=== PATIENT | male | born 1970 | race Caucasian/White ===

== ENCOUNTER → 2020-04-20 15:02 | Outpatient (BNVA) | payer OTHER, SELFPAY | PROVIDERS: Visit Provider Physician Assistant Medical | DX: S50.01XA Contusion of right elbow, initial encounter (principal); W18.30XA Fall on same level, unspecified, initial encounter | CPT/HCPCS: 99202 ==

== ENCOUNTER 2020-09-11 20:11 | Inpatient (IN) | payer OTHER, SELFPAY ==
--- NOTE | ~2020-09-11 | US_ITS ---
EXAMINATION: US ABDOMEN COMPLETE CLINICAL INFORMATION: Right upper quadrant pain. Hepatitis.. COMPARISON: None TECHNIQUE: Real-time imaging of the abdominal viscera. FINDINGS: PANCREAS: Normal. ABDOMINAL AORTA: The proximal, mid, and distal segments are normal in caliber. INFERIOR VENA CAVA: Visualized portions are normal. LIVER: Liver echotexture is increased. The liver is normal in size. The liver contour is normal. No focal hepatic lesion. There is no intrahepatic biliary duct dilatation seen. GALLBLADDER: Normal. The gallbladder is physiologically distended without evidence of stones, sludge, polyps, wall thickening or pericholecystic fluid. COMMON BILE DUCT: Normal in caliber measuring 0.5 cm in diameter. RIGHT KIDNEY: There is a 1 cm cyst in the mid to lower pole. No hydronephrosis. No renal calculi or focal parenchymal lesions. The kidney measures 11 cm in maximum dimension. LEFT KIDNEY: Normal. No hydronephrosis. No renal calculi or focal parenchymal lesions. The kidney measures 10 cm in maximum dimension. SPLEEN: Normal. The spleen measures 8 cm in maximum dimension. FREE FLUID: None. US/US abdomen complete IMPRESSION: Echogenic liver probably representing fatty infiltration. Small right renal cyst.
[2020-09-11 20:25] VITALS: BP 147/84; PULSE 118; RESP 18; TEMP 36.9; O2SAT 95; BMI 28.8
--- NOTE | 2020-09-11 20:44 | MHC.RECOVSUP ---
? Reason for consult Recovery support o Current location: ED6 o Identified substance use concern: Alcohol - Withdrawal - Seeking ATS (detox) - Support ? Intervention: o ATS bed search started8:30PM/completed8:45PM o Community resources provided o Harm reduction discussion ? Plan: o <del>Referral</del> <del>to</del> <del>[facility]</del> <del>o</del> <del>Bed</del> <del>search</del> <del>in</del> <del>progress</del> <del>to</del> <del>o</del> <del>Follow</del> <del>up</del> <del>tomorrow</del> <del>o</del> <del>Patient</del> <del>awaiting</del> <del>crisis</del> <del>evaluation</del> o Patient to follow up with [facility] after discharge ? 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 Patient stated that he was in [facility] detox and would like to go go back.. Called [facility] and they advised me to call in the morning.. I informed the care team about plan of action.. Patient is currently going through withdrawal and is being looked after...
--- NOTE | 2020-09-11 20:59 | ED_ITS ---
HPI - Alcohol General Chief Complaint: ETOH/Substance Use Stated Complaint: detox Time Seen by Provider: 09/11/20 22:16 Source: patient and family Mode of arrival: ambulatory Limitations: no limitations History of Present Illness HPI narrative: 49-year-old male with past medical history of hypertension presents for EtOH withdrawals and asking for detox. Patient states to drink hard liquor, usually vodka, and 6-10 beers daily. States that he has gone to [facility] in the past approximately 3 years ago. He states that he has been drinking every day, usually starting at 9:00 a.m. to the time he goes to bed. He feels like his life is out of control, and feels that if he does not get help that he and his family will suffer greatly. Patient reports tremors, palpitations, and anxiety. Patient does not report any chest pain or pressure, abdominal pain, abdominal distention, melena, hematochezia, nausea, vomiting, diarrhea, constipation, edema, suicidal ideation, homicidal ideation, auditory or visual hallucinations. MD complaint: alcohol intoxication, alcohol withdrawal, alcohol dependence and desires rehab Last drink: Hours (ago) (Several hours ago) Chronic alcohol use: Yes Previous visits for alcohol intoxication: No Recent trauma: No Associated symptoms: diaphoresis, tremors and depression Treatments prior to arrival: none Related Data Home Medications Medication Instructions Recorded Confirmed lisinopril 10 mg PO DAILY 09/11/20 09/11/20 Allergies Allergy/AdvReac Type Severity Reaction Status Date / Time No Known Allergies Allergy Verified 09/11/20 20:57 Review of Systems Review of Systems: Constitutional: Positive tremors, No Fever, No Chills ENT/Mouth: No sore throat, No Rhinorrhea Eyes: No Eye Pain, No Swelling, No Redness Cardiovascular: Positive palpitations, No Chest Pain, No SOB Respiratory: No Cough, No Sputum Gastrointestinal: No Nausea, No Vomiting, No Diarrhea, No abdominal Pain Genitourinary: No Dysuria, No Hematuria Musculoskeletal: No joint pain, No Myalgias, No Joint Swelling Skin: No Skin Lesions, No rash Neuro: No Weakness, No Numbness, No Loss of Consciousness, No Dizziness, No Headache Psych: Positive alcohol abuse, No Anxiety, No Depression, No SI/HI/AH/VH Heme/Lymph: No Bruising, No Bleeding,No Lymphadenopathy Endocrine: No Polyuria, No Polydipsia Yes all other systems are reviewed and are negative [facility] Past Medical History Attestation statement: The following information was validated with the patient. Source: old records reviewed Medical History HTN (hypertension) Social History Social History Advance Directives: No Advance Directives Information Provided: Yes Physical Exam Vital Signs: Vital Signs: Last Vital Signs Temp 98.2 F 09/11/20 23:15 Pulse 92 09/11/20 23:15 Resp 18 09/11/20 23:15 BP 134/79 09/11/20 23:15 Pulse Ox 95 09/11/20 23:15 Body Mass Index 28.8 Appearance: Alert. Oriented X3. Moderate distress. Head: Normal external exam. Normocephalic. Atraumatic. No Garcia signs noted. No raccoon eyes noted Eyes: PERRLA. EOMI. Conjunctiva and sclera normal. Eyelids normal. Sclerae nonicteric. ENT: TM's Normal. Pharynx normal. Uvula midline. Moist mucous membranes. Neck: Normal inspection. Neck supple. No adenopathy. Thyroid Normal. No meningeal signs. No neck mass noted. CVS: Normal heart rate and rhythm. Heart sound normal. No murmurs noted. Pulses equal to all extremities. Respiratory: No respiratory distress. Painless inspiration. Lung sounds clear to auscultation all lobes. Chest nontender. No accessory muscle usage noted or decreased air movement noted. Abdomen: Soft and nontender. Bowel sounds normal in all 4 quadrants. No distention noted. No organomegaly noted. No visible injury noted. Back: No CVA tenderness. Full range of motion noted. Skin: Skin warm and dry. Normal skin color. Normal skin turgor. No rashes/lesions/lacerations noted. Extremities: No lower extremity edema. Extremities exhibit normal range of motion. Extremities nontender. Neuro: cranial nerves 2-12 intact, no focal neural deficits, strength 5/5 to all extremities, No motor deficit. No sensory deficit. Reflexes normal. Course Course Course Narrative: 49-year-old male presents with ETOH withdrawal, patient is tachycardic, hypertensive, and tremorous. Will start phenobarbital protocol. He does not report any auditory or visual hallucinations, does not report black outs for seizures. Has been drinking 1-2 points + beer on a daily basis for the past several months. Discussion with hospitalist regarding plan of care, plan is to admit for EtOH w ithdrawal. Consultations Consultation #1: sonia MDM - Alcohol Differential Diagnosis Differential diagnosis: Likely alcohol dependence, alcohol withdrawal delirium, alcohol intoxication, alcohol ketoacidosis and alcohol withdrawal syndrome Medical Records Attestation: I reviewed the patient's medical records. Lab Data Attestation: I reviewed the patient's lab results. Result diagrams: 09/11/20 21:11 09/11/20 21:11 Labs: Lab Results 09/11/20 09/11/20 09/11/20 Range/Units 21:11 21:11 21:11 WBC 6.9 (4.8-10.8) X10*3/uL RBC 4.35 L (4.60-5.80) X10*6/uL Hgb 14.5 (14.0-18.0) g/dl Hct 41.3 L (42-52) % MCV 94.9 (80-98) fL MCH 33.3 H (27.0-33.0) pg MCHC 35.1 (31.0-36.0) g/dl RDW 13.0 (11.0-16.0) % Plt Count 228 (160-400) X10*3/uL MPV 9.4 (9.4-12.4) fL Immature Gran % (Auto) 0.1 (0.0-0.4) % Neut % (Auto) 74.0 H (45-73) % Lymph % (Auto) 16.7 L (20-40) % [place] % (Auto) 8.3 (2-11) % Eos % (Auto) 0.0 (0-4) % Baso % (Auto) 0.9 (0-2) % Lymph # (Auto) 1.2 (1.2-4.9) X10*3/uL [place] # (Auto) 0.6 (0.1-1.2) X10*3/uL Eos # (Auto) 0.0 (0.0-0.4) X10*3/uL Baso # (Auto) 0.1 (0.0-0.2) X10*3/uL Abs Immat Gran (auto) 0.01 (0.00-0.03) X10*3/uL Absolute Neuts (auto) 5.1 (2.0-8.3) X10*3/uL Absolute Nucleated RBC 0.000 (0.0-0.012) X10*3/uL Nucleated RBC % (auto) 0.0 (0.0-0.2) /100WBC Sodium 135 (135-145) mmol/L Potassium 4.7 (3.3-5.1) mmol/L Chloride 100 (96-108) mmol/L Carbon Dioxide 17 L (22-29) mmol/L Anion Gap 23 H (12-20) BUN 7 L (9-16) mg/dL Creatinine 1.01 (0.5-1.4) mg/dL Estim Creat Clear Calc 93.4 Estimated GFR > 60 Random Glucose 108 (60-115) mg/dL Calcium 8.8 (8.4-10.2) mg/dL Phosphorus 3.8 (2.7-4.5) mg/dL Magnesium 2.0 (1.6-2.6) mg/dL Total Bilirubin 0.2 (0.0-1.0) mg/dL Direct Bilirubin 0.2 (0.0-0.5) mg/dL AST 183 H (5-37) U/L ALT 132 H (0-40) U/L Alkaline Phosphatase 53 (39-117) U/L Total Protein 7.9 (6.5-8.0) g/dL Albumin 4.7 (3.5-5.0) g/dL Lipase 35 (8-78) U/L Urine Opiates Screen (Not Detect) Ur Barbiturates Screen (Not Detect) Ur Phencyclidine Scrn (Not Detect) Ur Amphetamines Screen (Not Detect) U Benzodiazepines Scrn (Not Detect) Urine Cocaine Screen (Not Detect) U Marijuana (THC) Screen (Not Detect) Ethyl Alcohol 199 mg/dL COVID-19 (MATT) (Negative) COVID-19 Clin Com 09/11/20 09/11/20 Range/Units 22:25 22:34 WBC (4.8-10.8) X10*3/uL RBC (4.60-5.80) X10*6/uL Hgb (14.0-18.0) g/dl Hct (42-52) % MCV (80-98) fL MCH (27.0-33.0) pg MCHC (31.0-36.0) g/dl RDW (11.0-16.0) % Plt Count (160-400) X10*3/uL MPV (9.4-12.4) fL Immature Gran % (Auto) (0.0-0.4) % Neut % (Auto) (45-73) % Lymph % (Auto) (20-40) % [place] % (Auto) (2-11) % Eos % (Auto) (0-4) % Baso % (Auto) (0-2) % Lymph # (Auto) (1.2-4.9) X10*3/uL [place] # (Auto) (0.1-1.2) X10*3/uL Eos # (Auto) (0.0-0.4) X10*3/uL Baso # (Auto) (0.0-0.2) X10*3/uL Abs Immat Gran (auto) (0.00-0.03) X10*3/uL Absolute Neuts (auto) (2.0-8.3) X10*3/uL Absolute Nucleated RBC (0.0-0.012) X10*3/uL Nucleated RBC % (auto) (0.0-0.2) /100WBC Sodium (135-145) mmol/L Potassium (3.3-5.1) mmol/L Chloride (96-108) mmol/L Carbon Dioxide (22-29) mmol/L Anion Gap (12-20) BUN (9-16) mg/dL Creatinine (0.5-1.4) mg/dL Estim Creat Clear Calc Estimated GFR Random Glucose (60-115) mg/dL Calcium (8.4-10.2) mg/dL Phosphorus (2.7-4.5) mg/dL Magnesium (1.6-2.6) mg/dL Total Bilirubin (0.0-1.0) mg/dL Direct Bilirubin (0.0-0.5) mg/dL AST (5-37) U/L ALT (0-40) U/L Alkaline Phosphatase (39-117) U/L Total Protein (6.5-8.0) g/dL Albumin (3.5-5.0) g/dL Lipase (8-78) U/L Urine Opiates Screen Not Detected (Not Detect) Ur Barbiturates Screen Not Detected (Not Detect) Ur Phencyclidine Scrn Not Detected (Not Detect) Ur Amphetamines Screen Not Detected (Not Detect) U Benzodiazepines Scrn Not Detected (Not Detect) Urine Cocaine Screen Not Detected (Not Detect) U Marijuana (THC) Screen Not Detected (Not Detect) Ethyl Alcohol mg/dL COVID-19 (MATT) Negative (Negative) COVID-19 Clin Com See Note Critical Care Time Critical Care Time Critical Care Time: Yes Total Critical Care Time: 45 Attestation: I have personally provided critical care time exclusive of time spent on separately billable procedures. Time includes review of laboratory data, radiology results, discussion with consultants, and monitoring for potential decompensation. Interventions were performed as documented. Discharge Plan Discharge Clinical Impression: Alcohol withdrawal syndrome Qualifiers: Complication of substance-induced condition: with unspecified complication Qualified Code(s): F10.239 - Alcohol dependence with withdrawal, unspecified Patient Disposition: Admitted As Inpatient
[2020-09-11 21:18] LABS: MANUAL DIFF FLAG NO
[2020-09-11 21:19] LABS: Basophils Absolute Auto 0.1 X10*3/uL (0.0-0.2); Basophils Percent Auto 0.9 % (0-2); Hematocrit 41.3 % (42-52); Hemoglobin 14.5 g/dl (14.0-18.0); Imm Gran Abs Auto 0.01 X10*3/uL (0.00-0.03); Imm Gran Pct Auto 0.1 % (0.0-0.4); Lymphocytes Absolute Auto 1.2 X10*3/uL (1.2-4.9); Lymphocytes Percent Auto 16.7 % (20-40); Mean Corpuscular HGB Conc 35.1 g/dl (31.0-36.0); Mean Corpuscular Hemoglobin 33.3 pg (27.0-33.0); Mean Corpuscular Volume 94.9 fL (80-98); Mean Platelet Volume 9.4 fL (9.4-12.4); Monocytes Absolute Auto 0.6 X10*3/uL (0.1-1.2); Monocytes Percent Auto 8.3 % (2-11); Neutrophils Absolute Auto 5.1 X10*3/uL (2.0-8.3); Platelet Count 228 X10*3/uL (160-400); Red Blood Count 4.35 X10*6/uL (4.60-5.80); White Blood Count 6.9 X10*3/uL (4.8-10.8)
[2020-09-11 21:38] LABS: Ethanol 199 mg/dL
[2020-09-11] MEDS: Thiamine HCL 200 MG/2 ML VIAL IVPUSH (21:39)
[2020-09-11] MEDS: PHENobarbitaL sodium 130 MG/ML VIAL 328 MG IM (21:39)
[2020-09-11] MEDS: 0.9 % Sodium Chloride 1,000 ML 999 ML IVCONT (21:40)
[2020-09-11 21:50] VITALS: BP 138/74; PULSE 101; RESP 16; O2SAT 98
[2020-09-11 22:43] LABS: Alanine Aminotransferase 132 U/L (0-40); Albumin Level 4.7 g/dL (3.5-5.0); Alkaline Phosphatase 53 U/L (39-117); Anion Gap 23 (12-20); Aspartate Amino Transferase 183 U/L (5-37); Bilirubin Direct 0.2 mg/dL (0.0-0.5); Bilirubin Total 0.2 mg/dL (0.0-1.0); Blood Urea Nitrogen 7 mg/dL (9-16); Calcium 8.8 mg/dL (8.4-10.2); Carbon Dioxide 17 mmol/L (22-29); Chloride 100 mmol/L (96-108); Creatinine Clr Calc Pharmacy 93.4; Estimated Glomerular Filt Rate > 60; Glucose Random 108 mg/dL (60-115); Lipase 35 U/L (8-78); Phosphorus 3.8 mg/dL (2.7-4.5); Potassium 4.7 mmol/L (3.3-5.1); Sodium 135 mmol/L (135-145); Total Protein 7.9 g/dL (6.5-8.0)
[2020-09-11 22:54] LABS: COVID-19 Test Negative (Negative)
[2020-09-11 23:03] LABS: Amphetamine Screen Urine Not Detected (Not Detect); Barbiturates, Urine Not Detected (Not Detect); Benzodiazepines Screen Urine Not Detected (Not Detect); Cannabinoid Screen Urine Not Detected (Not Detect); Cocaine Screen Urine Not Detected (Not Detect); Opiate Screen Urine Not Detected (Not Detect); Phencyclidine Screen Urine Not Detected (Not Detect)
[2020-09-11 23:15] VITALS: BP 134/79; PULSE 92; RESP 18; TEMP 36.8; O2SAT 95
[2020-09-12] VITALS (7 sets, daily range): BP systolic 136–162; BP diastolic 78–90; PULSE 66–83; RESP 18–20; TEMP 36–36.6; O2SAT 95–98
--- NOTE | 2020-09-12 | PM.IMHP ---
History of Present Illness Date of Service: 09/12/20 Chief Complaint: Alcohol detox 49-year-old male with a past medical history of hypertension, alcohol abuse presented to the hospital with a chief complaint requesting for alcohol detoxification. Patient reported that he has been drinking alcohol every day; drinks about 2 pt of liquor and 6-12 beers per day. Patient mentions last drink was this afternoon; subsequently started full shaky tremulous and tachycardic; not feeling well; denies any abdominal discomfort nausea vomiting or chest pain. Denies any palpitations Denies any numbness tingling. Review of all other systems is negative except mentioned above ER course: Per ER team patient is mentating well; noted to be tachycardic and hypertensive; tremulous; patient was started on phenobarb protocol for alcohol withdrawal. Admitted to the hospital for further management. [facility] Medical History (Updated 09/14/20 @ 13:56 by Luna Liu MD) HTN (hypertension) Transaminasemia Social History Household Members: Spouse Housing: House Do you presently have visiting nurse or other home services: No Patient Tobacco Use Status: Never used Tobacco service: Yes Current occupational status: employed Meds Allergies Allergy/AdvReac Type Severity Reaction Status Date / Time No Known Allergies Allergy Verified 09/11/20 20:57 Active Medications: Current Medications Generic Name Dose Route Start Last Admin Trade Name Freq PRN Reason Stop Dose Admin Famotidine 20 mg 09/12/20 09:00 Famotidine/Pf 20 Mg/2 Ml Vial IVPUSH BID JEREMY Folic Acid 1 mg 09/12/20 09:00 Folic Acid 1 Mg Tablet PO 09/15/20 08:59 DAILY JEREMY Hydroxyzine HCl 25 mg 09/11/20 23:55 Hydroxyzine Hcl 25 Mg Tablet PO Q6H PRN Anxiety Dextrose/Sodium Chloride 1,000 mls @ 100 mls/hr 09/11/20 23:45 D51/2ns IVCONT .Q10H JEREMY Magnesium Hydroxide 30 ml 09/11/20 23:55 Milk Of Magnesia 30 Ml Oral.Susp PO DAILY PRN Constipation Medication 1 each 09/12/20 09:00 No Benzodiazepines MISCELLANE DAILY JEREMY Melatonin 6 mg 09/11/20 23:55 Melatonin 3 Mg Tablet PO BEDTIME PRN Insomnia Multivitamins 1 tab 09/12/20 09:00 B-Complex With Vitamin C Tablet PO DAILY [facility] Ondansetron HCl 4 mg 09/11/20 23:55 Ondansetron Hcl 4 Mg/2 Ml Vial IVPUSH Q8H PRN Nausea and Vomiting Pharmacy Consult 1 each 09/11/20 23:55 Consult Rx Etoh Phenob Dosing MISCELLANE ONCE PRN Consult order Phenobarbital 45 mg 09/12/20 09:00 Phenobarbital 15 Mg Tablet PO 09/13/20 21:01 BID [facility] Phenobarbital 15 mg 09/14/20 09:00 Phenobarbital 15 Mg Tablet PO 09/15/20 21:01 BID [facility] Phenobarbital 15 mg 09/16/20 09:00 Phenobarbital 15 Mg Tablet PO 09/17/20 09:01 DAILY [facility] Phenobarbital Sodium 246 mg 09/12/20 01:00 Phenobarbital Sodium 130 Mg/Ml Vial IM 09/12/20 04:01 [id number],0400 [facility] Sodium Chloride 3 ml 09/12/20 00:00 0.9 % Sodium Chloride Flush 3 Ml Syringe IVFLUSH QSHIFT [facility] Thiamine HCl 100 mg 09/12/20 09:00 Thiamine Hcl 100 Mg Tablet PO 09/15/20 08:59 DAILY [facility] Home Medications Medication Instructions Recorded Confirmed Last Taken Type lisinopril 10 mg tablet 10 mg PO DAILY 09/11/20 09/11/20 Unknown History Physical Exam Vital Signs and Narrative: Vital Signs: Last Vital Signs Temp 98.2 F 09/11/20 23:15 Pulse 92 09/11/20 23:15 Resp 18 09/11/20 23:15 BP 134/79 09/11/20 23:15 Pulse Ox 95 09/11/20 23:15 Body Mass Index 28.8 Gen: Appears be in no acute distress HEENT: NCAT, Moist mucosa. Pulmonary: Vesicular breath sounds, fair air entry CVS: Normal S1-S2 Abdomen: BS+, Soft, Nontender Extremities: Warm well perfused Neuro: Alert and awake. Results Labs CBC and Chem 7: 09/13/20 04:38 09/13/20 04:38 Labs: Laboratory Results - last 24 hr 09/11/20 09/11/20 09/11/20 21:11 21:11 21:11 MCV 94.9 MCH 33.3 H MCHC 35.1 RDW 13.0 Plt Count 228 MPV 9.4 Immature Gran % (Auto) 0.1 Neut % (Auto) 74.0 H Lymph % (Auto) 16.7 L [place] % (Auto) 8.3 Eos % (Auto) 0.0 Baso % (Auto) 0.9 Lymph # (Auto) 1.2 [place] # (Auto) 0.6 Eos # (Auto) 0.0 Baso # (Auto) 0.1 Abs Immat Gran (auto) 0.01 Absolute Neuts (auto) 5.1 Absolute Nucleated RBC 0.000 Nucleated RBC % (auto) 0.0 Anion Gap 23 H Estim Creat Clear Calc 93.4 Estimated GFR > 60 Random Glucose 108 Calcium 8.8 Phosphorus 3.8 Magnesium 2.0 Total Bilirubin 0.2 Direct Bilirubin 0.2 AST 183 H ALT 132 H Alkaline Phosphatase 53 Total Protein 7.9 Albumin 4.7 Lipase 35 Urine Opiates Screen Ur Barbiturates Screen Ur Phencyclidine Scrn Ur Amphetamines Screen U Benzodiazepines Scrn Urine Cocaine Screen U Marijuana (THC) Screen Ethyl Alcohol 199 COVID-19 (MATT) COVID-19 [employer] 09/11/20 09/11/20 22:25 22:34 MCV MCH MCHC RDW Plt Count MPV Immature Gran % (Auto) Neut % (Auto) Lymph % (Auto) [place] % (Auto) Eos % (Auto) Baso % (Auto) Lymph # (Auto) [place] # (Auto) Eos # (Auto) Baso # (Auto) Abs Immat Gran (auto) Absolute Neuts (auto) Absolute Nucleated RBC Nucleated RBC % (auto) Anion Gap Estim Creat Clear Calc Estimated GFR Random Glucose Calcium Phosphorus Magnesium Total Bilirubin Direct Bilirubin AST ALT Alkaline Phosphatase Total Protein Albumin Lipase Urine Opiates Screen Not Detected Ur Barbiturates Screen Not Detected Ur Phencyclidine Scrn Not Detected Ur Amphetamines Screen Not Detected U Benzodiazepines Scrn Not Detected Urine Cocaine Screen Not Detected U Marijuana (THC) Screen Not Detected Ethyl Alcohol COVID-19 ([facility]T) Negative COVID-19 [employer] See Note Assessment and Plan (1) Alcohol withdrawal syndrome: Qualifiers: Complication of substance-induced condition: with unspecified complication Qualified Code(s): F10.239 - Alcohol dependence with withdrawal, unspecified Status: Acute 49-year-old male with a past medical history of hypertension, alcohol abuse presented to the hospital with a chief complaint of tremulousness/shaking; noted to be in alcohol withdrawal. Acute alcohol withdrawal syndrome: Continue phenobarb protocol. Thiamine, folate, multivitamins. Gentle IV fluids Telemetry Seizure precautions, aspiration precautions track service worker follow-up Transaminitis: Likely in setting of alcohol use. Will obtain right upper quadrant ultrasound and acute hepatitis panel. High anion gap: Likely alcoholic ketoacidosis. Patient on IV fluids. History of hypertension: Continue home lisinopril GI prophylaxis: Pepcid DVT prophylaxis: SCD boots Code status: Full code Quality Stroke Does the patient have a stroke diagnosis?: No VTE Prior VTE?: No VTE Risk Level:: Medical - moderate - high VTE Device Contraindication: N/A - Device Ordered VTE Drug Contraindication: Treatment Not Indicated
[2020-09-12] MEDS: PHENobarbitaL sodium 130 MG/ML VIAL 246 MG IM ×2 (01:10→04:13)
[2020-09-12] MEDS: Dextrose 5 % and 0.45 % NaCl 1,000 ML 100 ML IVCONT ×3 (01:18→22:51)
[2020-09-12 06:40] LABS: MANUAL DIFF FLAG NO
[2020-09-12 06:46] LABS: Basophils Absolute Auto 0.1 X10*3/uL (0.0-0.2); Basophils Percent Auto 1.1 % (0-2); Eosinophils Percent Auto 0.8 % (0-4); Hematocrit 40.2 % (42-52); Hemoglobin 13.9 g/dl (14.0-18.0); Imm Gran Abs Auto 0.02 X10*3/uL (0.00-0.03); Imm Gran Pct Auto 0.4 % (0.0-0.4); Lymphocytes Absolute Auto 1.2 X10*3/uL (1.2-4.9); Lymphocytes Percent Auto 21.8 % (20-40); Mean Corpuscular HGB Conc 34.6 g/dl (31.0-36.0); Mean Corpuscular Hemoglobin 32.9 pg (27.0-33.0); Mean Corpuscular Volume 95.3 fL (80-98); Monocytes Absolute Auto 0.6 X10*3/uL (0.1-1.2); Monocytes Percent Auto 11.6 % (2-11); Neutrophils Absolute Auto 3.4 X10*3/uL (2.0-8.3); Neutrophils Percent Auto 64.3 % (45-73); Platelet Count 199 X10*3/uL (160-400); Red Blood Count 4.22 X10*6/uL (4.60-5.80); Red Cell Distribution Width 13.1 % (11.0-16.0); White Blood Count 5.3 X10*3/uL (4.8-10.8)
[2020-09-12 07:03] LABS: Magnesium 2.1 mg/dL (1.6-2.6)
--- NOTE | 2020-09-12 07:49 | PC.NURSE ---
report to marc on c
--- NOTE | 2020-09-12 09:22 | MHC.CM.PN ---
[facility] Rights provided, signed by Pt. A copy was placed on the chart. The patient has the original form. DX ETOH he is 49. He works and is in the services presently. He is independent all functional mobility. DP home no services to transport home. CM will follow.
[2020-09-12] MEDS: Folic Acid 1 MG TABLET PO (09:37)
[2020-09-12] MEDS: Thiamine HCL 100 MG TABLET PO (09:38)
[2020-09-12] MEDS: 0.9 % Sodium Chloride Flush 3 ML SYRINGE IVFLUSH ×2 (09:38→20:23)
[2020-09-12] MEDS: Famotidine/PF 20 MG/2 ML VIAL IVPUSH ×2 (09:38→20:23)
[2020-09-12] MEDS: PHENobarbitaL 15 MG TABLET 45 MG PO ×2 (09:38→20:23)
--- NOTE | 2020-09-12 14:38 | HO.PM.IMPN ---
Subjective Subjective Date of Service: 09/12/20 Interval History: Regrets his current relapse. Withdrawal symptoms well-controlled Denies abd pain Physical Exam Vital Signs: Vital Signs: Last Vital Signs Temp 97.7 F 09/12/20 11:32 Pulse 83 09/12/20 11:32 Resp 20 09/12/20 11:32 BP 161/80 H 09/12/20 11:32 Pulse Ox 95 09/12/20 11:32 Body Mass Index 28.8 Gen: in no acute distress HEENT: sclera anicteric, moist mucus membranes Neck: supple Lungs: clear to auscultation bilaterally Heart: regular rate and rhythm, no murmurs Abd: soft, non-tender, non-distended Ext: no edema Skin: warm/well-perfused Neuro: alert and oriented x3, no focal findings Psych: appropriate affect Objective Data Current Medications Generic Name Dose Route Start Last Admin Trade Name Freq PRN Reason Stop Dose Admin Famotidine 20 mg 09/12/20 09:00 09/12/20 09:38 Famotidine/Pf 20 Mg/2 Ml Vial IVPUSH 20 mg BID JEREMY Administration Folic Acid 1 mg 09/12/20 09:00 09/12/20 09:37 Folic Acid 1 Mg Tablet PO 09/15/20 08:59 1 mg DAILY JEREMY Administration Hydroxyzine HCl 25 mg 09/11/20 23:55 Hydroxyzine Hcl 25 Mg Tablet PO Q6H PRN Anxiety Dextrose/Sodium Chloride 1,000 mls @ 100 mls/hr 09/11/20 23:45 09/12/20 09:39 D51/2ns IVCONT 100 mls/hr .Q10H JEREMY Administration Lisinopril 10 mg 09/12/20 09:00 09/12/20 09:38 Lisinopril 10 Mg Tablet PO 10 mg DAILY JEREMY Administration Protocol Magnesium Hydroxide 30 ml 09/11/20 23:55 Milk Of Magnesia 30 Ml Oral.Susp PO DAILY PRN Constipation Medication 1 each 09/12/20 09:00 No Benzodiazepines MISCELLANE DAILY JEREMY Melatonin 6 mg 09/11/20 23:55 Melatonin 3 Mg Tablet PO BEDTIME PRN Insomnia Multivitamins 1 tab 09/12/20 09:00 09/12/20 09:37 B-Complex With Vitamin C Tablet PO 1 tab DAILY JEREMY Administration Ondansetron HCl 4 mg 09/11/20 23:55 Ondansetron Hcl 4 Mg/2 Ml Vial IVPUSH Q8H PRN Nausea and Vomiting Pharmacy Consult 1 each 09/11/20 23:55 Consult Rx Etoh Phenob Dosing MISCELLANE ONCE PRN Consult order Phenobarbital 45 mg 09/12/20 09:00 09/12/20 09:38 Phenobarbital 15 Mg Tablet PO 09/13/20 21:01 45 mg BID JEREMY Administration Phenobarbital 15 mg 09/14/20 09:00 Phenobarbital 15 Mg Tablet PO 09/15/20 21:01 BID JEREMY Phenobarbital 15 mg 09/16/20 09:00 Phenobarbital 15 Mg Tablet PO 09/17/20 09:01 DAILY [facility] Sodium Chloride 3 ml 09/12/20 00:00 09/12/20 09:38 0.9 % Sodium Chloride Flush 3 Ml Syringe IVFLUSH 3 ml QSHIFT [facility] Administration Thiamine HCl 100 mg 09/12/20 09:00 09/12/20 09:38 Thiamine Hcl 100 Mg Tablet PO 09/15/20 08:59 100 mg DAILY JEREMY Administration Labs CBC & Chem 7: 09/12/20 06:18 09/11/20 21:11 Labs: Laboratory Results - last 24 hr 09/11/20 09/11/20 09/11/20 21:11 21:11 21:11 WBC 6.9 RBC 4.35 L Hgb 14.5 Hct 41.3 L MCV 94.9 MCH 33.3 H MCHC 35.1 RDW 13.0 Plt Count 228 MPV 9.4 Immature Gran % (Auto) 0.1 Neut % (Auto) 74.0 H Lymph % (Auto) 16.7 L [place] % (Auto) 8.3 Eos % (Auto) 0.0 Baso % (Auto) 0.9 Lymph # (Auto) 1.2 [place] # (Auto) 0.6 Eos # (Auto) 0.0 Baso # (Auto) 0.1 Abs Immat Gran (auto) 0.01 Absolute Neuts (auto) 5.1 Absolute Nucleated RBC 0.000 Nucleated RBC % (auto) 0.0 Sodium 135 Potassium 4.7 Chloride 100 Carbon Dioxide 17 L Anion Gap 23 H BUN 7 L Creatinine 1.01 Estim Creat Clear Calc 93.4 Estimated GFR > 60 Random Glucose 108 Calcium 8.8 Phosphorus 3.8 Magnesium 2.0 Total Bilirubin 0.2 Direct Bilirubin 0.2 AST 183 H ALT 132 H Alkaline Phosphatase 53 Total Protein 7.9 Albumin 4.7 Lipase 35 Urine Opiates Screen Ur Barbiturates Screen Ur Phencyclidine Scrn Ur Amphetamines Screen U Benzodiazepines Scrn Urine Cocaine Screen U Marijuana (THC) Screen Ethyl Alcohol 199 COVID-19 (MATT) COVID-19 Clin Com 09/11/20 09/11/20 09/12/20 22:25 22:34 06:18 WBC 5.3 RBC 4.22 L Hgb 13.9 L Hct 40.2 L MCV 95.3 MCH 32.9 MCHC 34.6 RDW 13.1 Plt Count 199 MPV 10.0 Immature Gran % (Auto) 0.4 Neut % (Auto) 64.3 Lymph % (Auto) 21.8 [place] % (Auto) 11.6 H Eos % (Auto) 0.8 Baso % (Auto) 1.1 Lymph # (Auto) 1.2 Mitchell # (Auto) 0.6 Eos # (Auto) 0.0 Baso # (Auto) 0.1 Abs Immat Gran (auto) 0.02 Absolute Neuts (auto) 3.4 Absolute Nucleated RBC 0.000 Nucleated RBC % (auto) 0.0 Sodium Potassium Chloride Carbon Dioxide Anion Gap BUN Creatinine Estim Creat Clear Calc Estimated GFR Random Glucose Calcium Phosphorus Magnesium Total Bilirubin Direct Bilirubin AST ALT Alkaline Phosphatase Total Protein Albumin Lipase Urine Opiates Screen Not Detected Ur Barbiturates Screen Not Detected Ur Phencyclidine Scrn Not Detected Ur Amphetamines Screen Not Detected U Benzodiazepines Scrn Not Detected Urine Cocaine Screen Not Detected U Marijuana (THC) Screen Not Detected Ethyl Alcohol COVID-19 ([facility]T) Negative COVID-19 Clin Com See Note 09/12/20 06:18 WBC RBC Hgb Hct MCV MCH MCHC RDW Plt Count MPV Immature Gran % (Auto) Neut % (Auto) Lymph % (Auto) [place] % (Auto) Eos % (Auto) Baso % (Auto) Lymph # (Auto) Mitchell # (Auto) Eos # (Auto) Baso # (Auto) Abs Immat Gran (auto) Absolute Neuts (auto) Absolute Nucleated RBC Nucleated RBC % (auto) Sodium Potassium Chloride Carbon Dioxide Anion Gap BUN Creatinine Estim Creat Clear Calc Estimated GFR Random Glucose Calcium Phosphorus Magnesium 2.1 Total Bilirubin Direct Bilirubin AST ALT Alkaline Phosphatase Total Protein Albumin Lipase Urine Opiates Screen Ur Barbiturates Screen Ur Phencyclidine Scrn Ur Amphetamines Screen U Benzodiazepines Scrn Urine Cocaine Screen U Marijuana (THC) Screen Ethyl Alcohol COVID-19 ([facility]T) COVID-19 Clin Com Assessment and Plan (1) Alcohol withdrawal syndrome: Status: Acute Assessment and Plan: hospital d#2 49yo M with HTN, EtOH abuse admitted for acute EtOH withdrawal # EtOH withdrawal - phenobarbital taper, thiamine, folate, vitamins, IV fluids, addiction medicine + CARE team consults # transaminasemia - suspect mild EtOH hepatitis. HBV/HCV serology + abd US pending. recheck LFTs in am # anion gap metabolic acidosis - likely due to alcoholic ketoacidosis. continue IV fluid hydration + check electrolytes in am # HTN - continue lisinopril # VTE ppx - SCDs Quality Stroke Does the patient have a stroke diagnosis?: No VTE Prior VTE?: No VTE Risk Level:: Medical - moderate - high VTE Device Contraindication: N/A - Device Ordered VTE Drug Contraindication: Treatment Not Indicated
--- NOTE | 2020-09-12 16:56 | HO.ADDICT_ITS ---
History of Present Illness Date of Service: 09/12/2020 Chief Complaint: alcohol withdrawal Reason for Consult: AUD Requesting physician: Luna Liu Discussed with referring provider: No Sources of Information: patient interviewed and chart reviewed HPI Narrative: Patient is a 49 year old male with Alcohol Use Diorder currently medically admitted after presenting to ED with withdrawal sx. Reports previous periods of recovery and states that since December his drinking increased again--identifies numerous stressors. Currently prescribed Campral which he does not find helpful. Has not tried any other medications. 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 Has attended [facility] in the past. Medical Evaluation Reviewed: Yes Review of Systems Constitutional: Denies malaise Gastrointestinal: Denies diarrhea and Denies vomiting Psychiatric: Reports anxiety and Reports depression Diagnostics Vital Signs (24Hr): Vital Signs - 24 hr 09/11/20 20:25 09/11/20 21:50 09/11/20 23:15 Temperature 98.5 F 98.2 F Pulse Rate 118 H 101 H 92 Respiratory Rate 18 16 18 Blood Pressure 147/84 H 138/74 134/79 Pulse Oximetry 95 98 95 09/12/20 06:17 09/12/20 08:00 09/12/20 09:38 Temperature 97.9 F Pulse Rate 81 82 82 Respiratory Rate 20 18 Blood Pressure 162/81 H 157/88 H 157/88 H Pulse Oximetry 95 09/12/20 11:32 09/12/20 15:02 Temperature 97.7 F 96.8 F Pulse Rate 83 79 Respiratory Rate 20 20 Blood Pressure 161/80 H 155/82 H Pulse Oximetry 95 96 Body Mass Index 28.8 Labs Results: 09/12/20 06:18 09/11/20 21:11 Labs: Laboratory Results - last 48 hr 09/11/20 09/11/20 09/11/20 21:11 21:11 21:11 WBC 6.9 RBC 4.35 L Hgb 14.5 Hct 41.3 L MCV 94.9 MCH 33.3 H MCHC 35.1 RDW 13.0 Plt Count 228 MPV 9.4 Immature Gran % (Auto) 0.1 Neut % (Auto) 74.0 H Lymph % (Auto) 16.7 L [place] % (Auto) 8.3 Eos % (Auto) 0.0 Baso % (Auto) 0.9 Lymph # (Auto) 1.2 [place] # (Auto) 0.6 Eos # (Auto) 0.0 Baso # (Auto) 0.1 Abs Immat Gran (auto) 0.01 Absolute Neuts (auto) 5.1 Absolute Nucleated RBC 0.000 Nucleated RBC % (auto) 0.0 Sodium 135 Potassium 4.7 Chloride 100 Carbon Dioxide 17 L Anion Gap 23 H BUN 7 L Creatinine 1.01 Estim Creat Clear Calc 93.4 Estimated GFR > 60 Random Glucose 108 Calcium 8.8 Phosphorus 3.8 Magnesium 2.0 Total Bilirubin 0.2 Direct Bilirubin 0.2 AST 183 H ALT 132 H Alkaline Phosphatase 53 Total Protein 7.9 Albumin 4.7 Lipase 35 Urine Opiates Screen Ur Barbiturates Screen Ur Phencyclidine Scrn Ur Amphetamines Screen U Benzodiazepines Scrn Urine Cocaine Screen U Marijuana (THC) Screen Ethyl Alcohol 199 COVID-19 (MATT) COVID-19 Walk Score Com 09/11/20 09/11/20 09/12/20 22:25 22:34 06:18 WBC 5.3 RBC 4.22 L Hgb 13.9 L Hct 40.2 L MCV 95.3 MCH 32.9 MCHC 34.6 RDW 13.1 Plt Count 199 MPV 10.0 Immature Gran % (Auto) 0.4 Neut % (Auto) 64.3 Lymph % (Auto) 21.8 [place] % (Auto) 11.6 H Eos % (Auto) 0.8 Baso % (Auto) 1.1 Lymph # (Auto) 1.2 [place] # (Auto) 0.6 Eos # (Auto) 0.0 Baso # (Auto) 0.1 Abs Immat Gran (auto) 0.02 Absolute Neuts (auto) 3.4 Absolute Nucleated RBC 0.000 Nucleated RBC % (auto) 0.0 Sodium Potassium Chloride Carbon Dioxide Anion Gap BUN Creatinine Estim Creat Clear Calc Estimated GFR Random Glucose Calcium Phosphorus Magnesium Total Bilirubin Direct Bilirubin AST ALT Alkaline Phosphatase Total Protein Albumin Lipase Urine Opiates Screen Not Detected Ur Barbiturates Screen Not Detected Ur Phencyclidine Scrn Not Detected Ur Amphetamines Screen Not Detected U Benzodiazepines Scrn Not Detected Urine Cocaine Screen Not Detected U Marijuana (THC) Screen Not Detected Ethyl Alcohol COVID-19 (MATT) Negative COVID-19 Clin Com See Note 09/12/20 06:18 WBC RBC Hgb Hct MCV MCH MCHC RDW Plt Count MPV Immature Gran % (Auto) Neut % (Auto) Lymph % (Auto) [place] % (Auto) Eos % (Auto) Baso % (Auto) Lymph # (Auto) [place] # (Auto) Eos # (Auto) Baso # (Auto) Abs Immat Gran (auto) Absolute Neuts (auto) Absolute Nucleated RBC Nucleated RBC % (auto) Sodium Potassium Chloride Carbon Dioxide Anion Gap BUN Creatinine Estim Creat Clear Calc Estimated GFR Random Glucose Calcium Phosphorus Magnesium 2.1 Total Bilirubin Direct Bilirubin AST ALT Alkaline Phosphatase Total Protein Albumin Lipase Urine Opiates Screen Ur Barbiturates Screen Ur Phencyclidine Scrn Ur Amphetamines Screen U Benzodiazepines Scrn Urine Cocaine Screen U Marijuana (THC) Screen Ethyl Alcohol COVID-19 (MATT) COVID-19 Clin Com Imaging Radiology Impressions: ITS Impressions Abdomen Ultrasound 09/12/20 14:00 IMPRESSION: Echogenic liver probably representing fatty infiltration. Small right renal cyst. Mental Status Exam Mental Status Exam Patient Appearance: Appropriate Patient Orientation: Person, Place, Time and Situation Level of Consciousness: Awake, Appropriate and Alert Patient Behavior: Appropriate Mood Description: Appropriate Affect Description: Appropriate Patient Cognition Impaired: No Ability to Follow Directions: Excellent Speech Pattern: Clear Delusions: Not Present Thought Process: Goal Oriented Thought Content: positive for Intact Judgement: Fair Medications Medications Current Medications Generic Name Dose Route Start Last Admin Trade Name Jpq PRN Reason Stop Dose Admin Famotidine 20 mg 09/12/20 09:00 09/12/20 09:38 Famotidine/Pf 20 Mg/2 Ml Vial IVPUSH 20 mg BID JEREMY Administration Folic Acid 1 mg 09/12/20 09:00 09/12/20 09:37 Folic Acid 1 Mg Tablet PO 09/15/20 08:59 1 mg DAILY JEREMY Administration Hydroxyzine HCl 25 mg 09/11/20 23:55 Hydroxyzine Hcl 25 Mg Tablet PO Q6H PRN Anxiety Dextrose/Sodium Chloride 1,000 mls @ 100 mls/hr 09/11/20 23:45 09/12/20 09:39 D51/2ns IVCONT 100 mls/hr .Q10H JEREMY Administration Lisinopril 10 mg 09/12/20 09:00 09/12/20 09:38 Lisinopril 10 Mg Tablet PO 10 mg DAILY JEREMY Administration Protocol Magnesium Hydroxide 30 ml 09/11/20 23:55 Milk Of Magnesia 30 Ml Oral.Susp PO DAILY PRN Constipation Medication 1 each 09/12/20 09:00 No Benzodiazepines MISCELLANE DAILY JEREMY Melatonin 6 mg 09/11/20 23:55 Melatonin 3 Mg Tablet PO BEDTIME PRN Insomnia Multivitamins 1 tab 09/12/20 09:00 09/12/20 09:37 B-Complex With Vitamin C Tablet PO 1 tab DAILY JEREMY Administration Ondansetron HCl 4 mg 09/11/20 23:55 Ondansetron Hcl 4 Mg/2 Ml Vial IVPUSH Q8H PRN Nausea and Vomiting Pharmacy Consult 1 each 09/11/20 23:55 Consult Rx Etoh Phenob Dosing MISCELLANE ONCE PRN Consult order Phenobarbital 45 mg 09/12/20 09:00 09/12/20 09:38 Phenobarbital 15 Mg Tablet PO 09/13/20 21:01 45 mg BID JEREMY Administration Phenobarbital 15 mg 09/14/20 09:00 Phenobarbital 15 Mg Tablet PO 09/15/20 21:01 BID JEREMY Phenobarbital 15 mg 09/16/20 09:00 Phenobarbital 15 Mg Tablet PO 09/17/20 09:01 DAILY JEREMY Sodium Chloride 3 ml 09/12/20 00:00 09/12/20 14:41 0.9 % Sodium Chloride Flush 3 Ml Syringe IVFLUSH Not Given QSHIFT JEREMY Thiamine HCl 100 mg 09/12/20 09:00 09/12/20 09:38 Thiamine Hcl 100 Mg Tablet PO 09/15/20 08:59 100 mg DAILY JEREMY Administration Allergies Allergies Allergy/AdvReac Type Severity Reaction Status Date / Time No Known Allergies Allergy Verified 09/11/20 20:57 Assessment & Plan Assessment & Plan (1) Alcohol use disorder, severe, dependence: Status: Acute Code(s): F10.20 - Alcohol dependence, uncomplicated Recommendations: * Discussed medications for AUD, including naltrexone. Patient reports that the is mandating he enter treatment in [facility] following hospital discharge * Discussed case with Recovery Support RN who will proide patient with information regarding medications as well as information for [facility] 35 mins spent with patient and coordinating care Greater than 50% of the session was spent on counseling and/or coordination of care PMFSH Past Medical History Medical History HTN (hypertension) Social History Social History Household Members: Spouse Housing: House Do you presently have visiting nurse or other home services: No Patient Tobacco Use Status: Never used Tobacco Use of substances other than those prescribed or required for medical reasons: No Have you been hit, kicked, punched, or otherwise hurt by someone within the past year? If so, by whom?: No Do you feel safe in your current relationship?: Yes Is there a partner from a previous relationship who is making you feel unsafe now?: No Are you made to feel afraid or neglected: No Advance Directives: No Advance Directives Information Provided: Yes Do you have thoughts of harming others: None Do you have a plan to hurt others: No Plan Recently lost weight without trying: No Eating poorly because of decreased appetite: No Nutrition Risks: No Nutritional Risk Poor oral hygiene: No service: Yes Current occupational status: employed
[2020-09-13] VITALS (8 sets, daily range): BP systolic 129–164; BP diastolic 68–95; PULSE 72–87; RESP 17–20; TEMP 36.4–37.4; O2SAT 96–98
[2020-09-13 05:19] LABS: Hematocrit 41.7 % (42-52); Mean Corpuscular HGB Conc 33.6 g/dl (31.0-36.0); Mean Corpuscular Volume 98.3 fL (80-98); Mean Platelet Volume 10.1 fL (9.4-12.4); Platelet Count 205 X10*3/uL (160-400); Red Blood Count 4.24 X10*6/uL (4.60-5.80); Red Cell Distribution Width 12.9 % (11.0-16.0); White Blood Count 6.7 X10*3/uL (4.8-10.8)
[2020-09-13 05:24] LABS: Prothrombin Time 11.5 SEC (9.9-13.0)
[2020-09-13 05:56] LABS: Alanine Aminotransferase 155 U/L (0-40); Albumin Level 3.9 g/dL (3.5-5.0); Alkaline Phosphatase 49 U/L (39-117); Anion Gap 11 (12-20); Aspartate Amino Transferase 169 U/L (5-37); Bilirubin Total 0.9 mg/dL (0.0-1.0); Blood Urea Nitrogen 8 mg/dL (9-16); Calcium 8.5 mg/dL (8.4-10.2); Carbon Dioxide 26 mmol/L (22-29); Chloride 103 mmol/L (96-108); Creatinine Clr Calc Pharmacy 104.8; Estimated Glomerular Filt Rate > 60; Glucose Random 102 mg/dL (60-115); Magnesium 2.2 mg/dL (1.6-2.6); Potassium 4.1 mmol/L (3.3-5.1); Sodium 136 mmol/L (135-145); Total Protein 6.5 g/dL (6.5-8.0)
[2020-09-13 06:04] LABS: ~Hepatitis B Surface Antibody REACTIVE (Nonreactive)
[2020-09-13 06:22] LABS: HBc Num1 0.05 S/CO (0.00-0.79); HBsAGNum1 0.14 S/CO (0.00-0.99); Hepatitis B Core Antibody Nonreactive (Nonreactive); Hepatitis B Surface Antigen Negative (Negative); ~HepC Num1 0.13 S/CO (0.00-0.79); ~Hepatitis C Antibody Nonreactive (Nonreactive)
[2020-09-13] MEDS: Folic Acid 1 MG TABLET PO (08:18)
[2020-09-13] MEDS: Thiamine HCL 100 MG TABLET PO (08:18)
[2020-09-13] MEDS: PHENobarbitaL 15 MG TABLET 45 MG PO ×2 (08:19→21:14)
[2020-09-13] MEDS: Famotidine/PF 20 MG/2 ML VIAL IVPUSH ×2 (08:19→21:14)
[2020-09-13] MEDS: Dextrose 5 % and 0.45 % NaCl 1,000 ML 100 ML IVCONT (08:19)
--- NOTE | 2020-09-13 11:29 | HO.PM.IMPN ---
Subjective Subjective Date of Service: 09/13/20 Interval History: No tremors. Tolerating diet. No N/V/abd pain. Going to alcohol treatment program tomorrow at 14:00 as mandated by . Committed to sobriety. Physical Exam Vital Signs: Vital Signs: Last Vital Signs Temp 98.3 F 09/13/20 11:21 Pulse 87 09/13/20 11:21 Resp 18 09/13/20 11:21 BP 129/83 09/13/20 11:21 Pulse Ox 96 09/13/20 11:21 Body Mass Index 28.8 Gen: in no acute distress HEENT: sclera anicteric, moist mucus membranes Neck: supple Lungs: clear to auscultation bilaterally Heart: regular rate and rhythm, no murmurs Abd: soft, non-tender, non-distended Ext: no edema Skin: warm/well-perfused Neuro: alert and oriented x3, no focal findings Psych: appropriate affect Objective Data Current Medications Generic Name Dose Route Start Last Admin Trade Name Freq PRN Reason Stop Dose Admin Famotidine 20 mg 09/12/20 09:00 09/13/20 08:19 Famotidine/Pf 20 Mg/2 Ml Vial IVPUSH 20 mg BID JEREMY Administration Folic Acid 1 mg 09/12/20 09:00 09/13/20 08:18 Folic Acid 1 Mg Tablet PO 09/15/20 08:59 1 mg DAILY JEREMY Administration Hydroxyzine HCl 25 mg 09/11/20 23:55 Hydroxyzine Hcl 25 Mg Tablet PO Q6H PRN Anxiety Dextrose/Sodium Chloride 1,000 mls @ 100 mls/hr 09/11/20 23:45 09/13/20 08:19 D51/2ns IVCONT 100 mls/hr .Q10H JEREMY Administration Lisinopril 10 mg 09/12/20 09:00 09/13/20 08:18 Lisinopril 10 Mg Tablet PO 10 mg DAILY JEREMY Administration Protocol Magnesium Hydroxide 30 ml 09/11/20 23:55 Milk Of Magnesia 30 Ml Oral.Susp PO DAILY PRN Constipation Medication 1 each 09/12/20 09:00 No Benzodiazepines MISCELLANE DAILY JEREMY Melatonin 6 mg 09/11/20 23:55 Melatonin 3 Mg Tablet PO BEDTIME PRN Insomnia Multivitamins 1 tab 09/12/20 09:00 09/13/20 08:18 B-Complex With Vitamin C Tablet PO 1 tab DAILY JEREMY Administration Ondansetron HCl 4 mg 09/11/20 23:55 Ondansetron Hcl 4 Mg/2 Ml Vial IVPUSH Q8H PRN Nausea and Vomiting Pharmacy Consult 1 each 09/11/20 23:55 Consult Rx Etoh Phenob Dosing MISCELLANE ONCE PRN Consult order Phenobarbital 45 mg 09/12/20 09:00 09/13/20 08:19 Phenobarbital 15 Mg Tablet PO 09/13/20 21:01 45 mg BID JEREMY Administration Phenobarbital 15 mg 09/14/20 09:00 Phenobarbital 15 Mg Tablet PO 09/15/20 21:01 BID JEREMY Phenobarbital 15 mg 09/16/20 09:00 Phenobarbital 15 Mg Tablet PO 09/17/20 09:01 DAILY JEREMY Sodium Chloride 3 ml 09/12/20 00:00 09/13/20 08:26 0.9 % Sodium Chloride Flush 3 Ml Syringe IVFLUSH Not Given QSHIFT JEREMY Thiamine HCl 100 mg 09/12/20 09:00 09/13/20 08:18 Thiamine Hcl 100 Mg Tablet PO 09/15/20 08:59 100 mg DAILY JEREMY Administration Labs CBC & Chem 7: 09/13/20 04:38 09/13/20 04:38 Labs: Laboratory Results - last 24 hr 09/13/20 09/13/20 09/13/20 04:38 04:38 04:38 WBC 6.7 RBC 4.24 L Hgb 14.0 Hct 41.7 L MCV 98.3 H MCH 33.0 MCHC 33.6 RDW 12.9 Plt Count 205 MPV 10.1 Absolute Nucleated RBC 0.000 Nucleated RBC % (auto) 0.0 PT 11.5 INR 1.0 Sodium Potassium Chloride Carbon Dioxide Anion Gap BUN Creatinine Estim Creat Clear Calc Estimated GFR Random Glucose Calcium Magnesium Total Bilirubin AST ALT Alkaline Phosphatase Total Protein Albumin Hep Bs Antigen Negative Hep Bs Antibody REACTIVE Hep B Core Total Ab Nonreactive Hepatitis C Ab (EIA) Nonreactive 09/13/20 04:38 WBC RBC Hgb Hct MCV MCH MCHC RDW Plt Count MPV Absolute Nucleated RBC Nucleated RBC % (auto) PT INR Sodium 136 Potassium 4.1 Chloride 103 Carbon Dioxide 26 Anion Gap 11 L BUN 8 L Creatinine 0.90 Estim Creat Clear Calc 104.8 Estimated GFR > 60 Random Glucose 102 Calcium 8.5 Magnesium 2.2 Total Bilirubin 0.9 AST 169 H ALT 155 H Alkaline Phosphatase 49 Total Protein 6.5 Albumin 3.9 Hep Bs Antigen Hep Bs Antibody Hep B Core Total Ab Hepatitis C Ab (EIA) Impressions Abdomen Ultrasound 09/12/20 14:00 IMPRESSION: Echogenic liver probably representing fatty infiltration. Small right renal cyst. Assessment and Plan (1) Alcohol withdrawal syndrome: Status: Acute Assessment and Plan: hospital d#3 49yo M with HTN, EtOH abuse admitted for acute EtOH withdrawal # EtOH withdrawal - phenobarbital taper, thiamine, folate, vitamins # transaminasemia - suspect mild EtOH hepatitis. HBV immune, HCV negative. fatty liver on US. recheck LFTs in am # anion gap metabolic acidosis - likely due to alcoholic ketoacidosis. resolved p IV fluids # HTN - continue lisinopril # VTE ppx - SCDs # dispo - to rehab program tomorrow Quality Stroke Does the patient have a stroke diagnosis?: No VTE Prior VTE?: No VTE Risk Level:: Medical - moderate - high VTE Device Contraindication: N/A - Device Ordered VTE Drug Contraindication: Treatment Not Indicated
--- NOTE | 2020-09-13 12:28 | MHC.RECOVRN ---
T/w met with pt in 485 to f/u regarding medication for AUD and d/c plan. Pt d/c tomorrow to the [facility] in [place], [place], a 28 day program. Pt provided with information regarding medications for AUD, [facility] information, local counseling providers, as well as t/w contact information. Pt encouraged to f/u with local supports after d/c from [place]. Pt denies questions or concerns at this time. Discussed with Zee Reeder APRN.
[2020-09-13] MEDS: 0.9 % Sodium Chloride Flush 3 ML SYRINGE IVFLUSH (18:28)
--- NOTE | 2020-09-14 | ECG_ITS ---
Test Reason : ELEV CPK Blood Pressure : / mmHG Vent. Rate : 080 BPM Atrial Rate : 080 BPM P-R Int : 172 ms QRS Dur : 092 ms QT Int : 356 ms P-R-T Axes : 033 -35 036 degrees QTc Int : 410 ms Normal sinus rhythm Left axis deviation Abnormal ECG No previous ECGs available Referred By: Luna Liu Electronically Signed By:AURORA MO
[2020-09-14] MEDS: 0.9 % Sodium Chloride Flush 3 ML SYRINGE IVFLUSH ×2 (00:18→08:54)
[2020-09-14 04:00] VITALS: BP 143/89; PULSE 80; RESP 20; TEMP 36.8; O2SAT 98
[2020-09-14 07:20] VITALS: BP 155/84; PULSE 76; RESP 18; TEMP 36.3; O2SAT 98
[2020-09-14 07:30] LABS: Alanine Aminotransferase 341 U/L (0-40); Alkaline Phosphatase 56 U/L (39-117); Aspartate Amino Transferase 243 U/L (5-37); Bilirubin Direct 0.2 mg/dL (0.0-0.5); Bilirubin Total 0.7 mg/dL (0.0-1.0); Total Protein 6.6 g/dL (6.5-8.0)
[2020-09-14 08:55] VITALS: BP 155/84; PULSE 76
[2020-09-14] MEDS: PHENobarbitaL 15 MG TABLET PO (08:55)
[2020-09-14] MEDS: Thiamine HCL 100 MG TABLET PO (08:55)
[2020-09-14] MEDS: Famotidine/PF 20 MG/2 ML VIAL IVPUSH (08:55)
[2020-09-14] MEDS: Folic Acid 1 MG TABLET PO (08:55)
[2020-09-14 08:58] LABS: Ferritin 925 ng/mL (20-250)
--- NOTE | 2020-09-14 10:11 | P.CNGI_ITS ---
History of Present Illness Data of Consult Service Date: 09/14/20 Requesting physician: Luna Liu Primary Care Provider: Zach Alvarez MD HPI Reason for consult: abn LFT 50-year-old male with a past medical history of hypertension, and alcohol abuse who I am seeing for assessment for abn LFT. He initially presented to the hospital requesting alcohol detoxification on background hx of drinking 2 pt of liquor and 6-12 beers per day. He was feeling shaky and tremulous and had gen malaise. He has been put on alcohol withdrawal protocol. denies any abdominal discomfort nausea vomiting or chest pain. [facility] Past Medical History Medical History HTN (hypertension) Social History Social History Household Members: Spouse Housing: House Do you presently have visiting nurse or other home services: No Patient Tobacco Use Status: Never used Tobacco Use of substances other than those prescribed or required for medical reasons: No Currently Displaying Signs/Symptoms of Drug Intoxication Withdrawal: No Have you been hit, kicked, punched, or otherwise hurt by someone within the past year? If so, by whom?: No Do you feel safe in your current relationship?: Yes Is there a partner from a previous relationship who is making you feel unsafe now?: No Are you made to feel afraid or neglected: No Advance Directives: No Advance Directives Information Provided: Yes Do you have thoughts of harming others: None Do you have a plan to hurt others: No Plan Recently lost weight without trying: No Eating poorly because of decreased appetite: No Nutrition Risks: No Nutritional Risk Poor oral hygiene: No service: Yes Current occupational status: employed Meds Allergies Allergy/AdvReac Type Severity Reaction Status Date / Time No Known Allergies Allergy Verified 09/11/20 20:57 Active Medications: Current Medications Generic Name Dose Route Start Last Admin Trade Name Saul PRN Reason Stop Dose Admin Famotidine 20 mg 09/12/20 09:00 09/14/20 08:55 Famotidine/Pf 20 Mg/2 Ml Vial IVPUSH 20 mg BID JEREMY Administration Folic Acid 1 mg 09/12/20 09:00 09/14/20 08:55 Folic Acid 1 Mg Tablet PO 09/15/20 08:59 1 mg DAILY JEREMY Administration Hydroxyzine HCl 25 mg 09/11/20 23:55 Hydroxyzine Hcl 25 Mg Tablet PO Q6H PRN Anxiety Lisinopril 10 mg 09/12/20 09:00 09/14/20 08:55 Lisinopril 10 Mg Tablet PO 10 mg DAILY JEREMY Administration Protocol Magnesium Hydroxide 30 ml 09/11/20 23:55 Milk Of Magnesia 30 Ml Oral.Susp PO DAILY PRN Constipation Medication 1 each 09/12/20 09:00 No Benzodiazepines MISCELLANE DAILY JEREMY Melatonin 6 mg 09/11/20 23:55 Melatonin 3 Mg Tablet PO BEDTIME PRN Insomnia Multivitamins 1 tab 09/12/20 09:00 09/14/20 08:55 B-Complex With Vitamin C Tablet PO 1 tab DAILY JEREMY Administration Ondansetron HCl 4 mg 09/11/20 23:55 Ondansetron Hcl 4 Mg/2 Ml Vial IVPUSH Q8H PRN Nausea and Vomiting Pharmacy Consult 1 each 09/11/20 23:55 Consult Rx Etoh Phenob Dosing MISCELLANE ONCE PRN Consult order Phenobarbital 15 mg 09/14/20 09:00 09/14/20 08:55 Phenobarbital 15 Mg Tablet PO 09/15/20 21:01 15 mg BID JEREMY Administration Phenobarbital 15 mg 09/16/20 09:00 Phenobarbital 15 Mg Tablet PO 09/17/20 09:01 DAILY [facility] Sodium Chloride 3 ml 09/12/20 00:00 09/14/20 08:54 0.9 % Sodium Chloride Flush 3 Ml Syringe IVFLUSH 3 ml QSHIFT JEREMY Administration Thiamine HCl 100 mg 09/12/20 09:00 09/14/20 08:55 Thiamine Hcl 100 Mg Tablet PO 09/15/20 08:59 100 mg DAILY JEREMY Administration Home Medications Medication Instructions Recorded Confirmed Last Taken Type lisinopril 10 mg tablet 10 mg PO DAILY 09/11/20 09/11/20 Unknown History acamprosate 333 mg tablet,delayed 2 tab PO TID 09/12/20 09/12/20 Unknown History release Physical Exam Vital Signs: Vital Signs: Last Vital Signs Temp 97.4 F 09/14/20 07:20 Pulse 76 09/14/20 08:55 Resp 18 09/14/20 07:20 BP 155/84 H 09/14/20 08:55 Pulse Ox 98 09/14/20 07:20 Body Mass Index 28.8 Results Labs CBC & Chem 7: 09/13/20 04:38 09/13/20 04:38 Labs: Liver Function 09/14/20 Range/Units 04:15 Total Bilirubin 0.7 (0.0-1.0) mg/dL Direct Bilirubin 0.2 (0.0-0.5) mg/dL AST 243 H (5-37) U/L ALT 341 H (0-40) U/L Alkaline Phosphatase 56 (39-117) U/L Albumin 4.0 (3.5-5.0) g/dL
[2020-09-14 11:05] VITALS: BP 165/86; PULSE 87; RESP 18; TEMP 36.8; O2SAT 97
--- NOTE | 2020-09-14 12:20 | MHC.CM.PN ---
Male 49 DX ETOH W/D. [facility]. He is discharged to a Rehabilitation facility thru the service. They are also providing transportation.
--- NOTE | 2020-09-14 13:50 | P.DS_ITS ---
DS: Providers Provider Date of Service: 09/14/20 Date of admission: 09/11/20 23:55 Primary care physician: Zach Alvarez MD Consults: 09/12/20 08:37 Addiction Medicine Routine Consulting Provider: Zee Reeder Reason for consultation: etoh Consult to Care Team Routine Comment: Reason for consultation: etoh DS: Diagnosis Discharge Diagnosis (1) Alcohol withdrawal syndrome: Status: Acute (2) Alcohol use disorder, severe, dependence: Status: Acute (3) Transaminasemia: Status: Acute (4) Elevated CPK: Status: Acute (5) Alcoholic ketoacidosis: Status: Acute DS: Medications Discharge Medications Home Medications: Home Medications Medication Instructions Recorded Confirmed lisinopril 10 mg tablet 10 mg PO DAILY 09/11/20 09/11/20 Previous Rx's Medication Instructions Recorded B-complex with vitamin C 1 tab PO DAILY #30 tab 09/14/20 folic acid 1 mg tablet 1 mg PO DAILY #30 tab 09/14/20 melatonin 3 mg tablet 6 mg PO BEDTIME PRN #30 tab 09/14/20 thiamine mononitrate (vit B1) 100 100 mg PO DAILY #30 tab 09/14/20 mg tablet DS: Summary Hospital Course Hospital Course: From admission H+P by hospitalist Zach Kaur, 09/12/20: 49-year-old male with a past medical history of hypertension, alcohol abuse presented to the hospital with a chief complaint requesting for alcohol detoxification. Patient reported that he has been drinking alcohol every day; drinks about 2 pt of liquor and 6-12 beers per day.? Patient mentions last drink was this afternoon; subsequently started full shaky tremulous and tachycardic; not feeling well; denies any abdominal discomfort nausea vomiting or chest pain. Denies any palpitations Denies any numbness tingling. Review of all other systems is negative except mentioned above ER course: Per ER team patient is mentating well; noted to be tachycardic and hypertensive; tremulous; patient was started on phenobarb protocol for alcohol withdrawal.? Admitted to the hospital for further management. The patient was admitted to the [facility] and given phenobarbital taper for acute alcohol withdrawal. Anion gap metabolic acidosis was attributed to alcoholic ketoacidosis and resolved after IV fluid hydration. He was found to have a moderate degree of transaminasemia. US showed fatty liver. He was HBV immune and HCV negative. Ferritin was elevated and hemochromatosis DNA was sent and is pending at the time of discharge, along with celiac serology and aldolase. CPK was moderately elevated without any symptoms of myalgias or muscle weakness. He is not on any statins or herbal supplements. He was discharged to [place]-mandated inpatient alcohol rehabilitation and should have CPK and LFTs rechecked on 09/16/20 and again on 09/23/20. If his CPK or LFTs increase significantly, he should return to the hospital for further workup and management. He should follow up with his PCP as well as a GI upon discharged from rehabilitation. Time Spent with Patient Time attestation: Total time spent providing and/or coordinating discharge services: 45 Discharge coordination time: Greater than 30 minutes Quality: Stroke Does the patient have a stroke diagnosis?: No Physical Exam Vital Signs: Vital Signs: Last Vital Signs Temp 98.3 F 09/14/20 11:05 Pulse 87 09/14/20 11:05 Resp 18 09/14/20 11:05 BP 165/86 H 09/14/20 11:05 Pulse Ox 97 09/14/20 11:05 Body Mass Index 28.8 Gen: in no acute distress HEENT: sclera anicteric, moist mucus membranes Neck: supple Lungs: clear to auscultation bilaterally Heart: regular rate and rhythm, no murmurs Abd: soft, non-tender, non-distended Ext: no edema Skin: warm/well-perfused Neuro: alert and oriented x3, no focal findings Psych: appropriate affect DS: Data Data Completed and Pending Completed studies during hospitalization [Text1]: ITS Impressions Abdomen Ultrasound 09/12/20 14:00 IMPRESSION: Echogenic liver probably representing fatty infiltration. Small right renal cyst. Laboratory Tests 09/11/20 09/11/20 09/11/20 21:11 21:11 21:11 WBC 6.9 RBC 4.35 L Hgb 14.5 Hct 41.3 L MCV 94.9 MCH 33.3 H MCHC 35.1 RDW 13.0 Plt Count 228 MPV 9.4 Immature Gran % (Auto) 0.1 Neut % (Auto) 74.0 H Lymph % (Auto) 16.7 L Linn % (Auto) 8.3 Eos % (Auto) 0.0 Baso % (Auto) 0.9 Lymph # (Auto) 1.2 Linn # (Auto) 0.6 Eos # (Auto) 0.0 Baso # (Auto) 0.1 Abs Immat Gran (auto) 0.01 Absolute Neuts (auto) 5.1 Absolute Nucleated RBC 0.000 Nucleated RBC % (auto) 0.0 PT INR Sodium 135 Potassium 4.7 Chloride 100 Carbon Dioxide 17 L Anion Gap 23 H BUN 7 L Creatinine 1.01 Estim Creat Clear Calc 93.4 Estimated GFR > 60 Random Glucose 108 Calcium 8.8 Phosphorus 3.8 Magnesium 2.0 Ferritin Total Bilirubin 0.2 Direct Bilirubin 0.2 AST 183 H ALT 132 H Alkaline Phosphatase 53 Total Creatine Kinase Total Protein 7.9 Albumin 4.7 Lipase 35 Urine Opiates Screen Ur Barbiturates Screen Ur Phencyclidine Scrn Ur Amphetamines Screen U Benzodiazepines Scrn Urine Cocaine Screen U Marijuana (THC) Screen Ethyl Alcohol 199 COVID-19 (MATT) COVID-19 Clin Com Hep Bs Antigen Hep Bs Antibody Hep B Core Total Ab Hepatitis C Ab (EIA) 09/11/20 09/11/20 09/12/20 22:25 22:34 06:18 WBC 5.3 RBC 4.22 L Hgb 13.9 L Hct 40.2 L MCV 95.3 MCH 32.9 MCHC 34.6 RDW 13.1 Plt Count 199 MPV 10.0 Immature Gran % (Auto) 0.4 Neut % (Auto) 64.3 Lymph % (Auto) 21.8 Linn % (Auto) 11.6 H Eos % (Auto) 0.8 Baso % (Auto) 1.1 Lymph # (Auto) 1.2 Linn # (Auto) 0.6 Eos # (Auto) 0.0 Baso # (Auto) 0.1 Abs Immat Gran (auto) 0.02 Absolute Neuts (auto) 3.4 Absolute Nucleated RBC 0.000 Nucleated RBC % (auto) 0.0 PT INR Sodium Potassium Chloride Carbon Dioxide Anion Gap BUN Creatinine Estim Creat Clear Calc Estimated GFR Random Glucose Calcium Phosphorus Magnesium Ferritin Total Bilirubin Direct Bilirubin AST ALT Alkaline Phosphatase Total Creatine Kinase Total Protein Albumin Lipase Urine Opiates Screen Not Detected Ur Barbiturates Screen Not Detected Ur Phencyclidine Scrn Not Detected Ur Amphetamines Screen Not Detected U Benzodiazepines Scrn Not Detected Urine Cocaine Screen Not Detected U Marijuana (THC) Screen Not Detected Ethyl Alcohol COVID-19 (MATT) Negative COVID-19 Clin Com See Note Hep Bs Antigen Hep Bs Antibody Hep B Core Total Ab Hepatitis C Ab (EIA) 09/12/20 09/13/20 09/13/20 06:18 04:38 04:38 WBC 6.7 RBC 4.24 L Hgb 14.0 Hct 41.7 L MCV 98.3 H MCH 33.0 MCHC 33.6 RDW 12.9 Plt Count 205 MPV 10.1 Immature Gran % (Auto) Neut % (Auto) Lymph % (Auto) Linn % (Auto) Eos % (Auto) Baso % (Auto) Lymph # (Auto) Linn # (Auto) Eos # (Auto) Baso # (Auto) Abs Immat Gran (auto) Absolute Neuts (auto) Absolute Nucleated RBC 0.000 Nucleated RBC % (auto) 0.0 PT INR Sodium Potassium Chloride Carbon Dioxide Anion Gap BUN Creatinine Estim Creat Clear Calc Estimated GFR Random Glucose Calcium Phosphorus Magnesium 2.1 Ferritin Total Bilirubin Direct Bilirubin AST ALT Alkaline Phosphatase Total Creatine Kinase Total Protein Albumin Lipase Urine Opiates Screen Ur Barbiturates Screen Ur Phencyclidine Scrn Ur Amphetamines Screen U Benzodiazepines Scrn Urine Cocaine Screen U Marijuana (THC) Screen Ethyl Alcohol COVID-19 (MATT) COVID-19 Clin Com Hep Bs Antigen Negative Hep Bs Antibody REACTIVE Hep B Core Total Ab Nonreactive Hepatitis C Ab (EIA) Nonreactive 09/13/20 09/13/20 09/14/20 04:38 04:38 04:15 WBC RBC Hgb Hct MCV MCH MCHC RDW Plt Count MPV Immature Gran % (Auto) Neut % (Auto) Lymph % (Auto) Linn % (Auto) Eos % (Auto) Baso % (Auto) Lymph # (Auto) Linn # (Auto) Eos # (Auto) Baso # (Auto) Abs Immat Gran (auto) Absolute Neuts (auto) Absolute Nucleated RBC Nucleated RBC % (auto) PT 11.5 INR 1.0 Sodium 136 Potassium 4.1 Chloride 103 Carbon Dioxide 26 Anion Gap 11 L BUN 8 L Creatinine 0.90 Estim Creat Clear Calc 104.8 Estimated GFR > 60 Random Glucose 102 Calcium 8.5 Phosphorus Magnesium 2.2 Ferritin 925 H Total Bilirubin 0.9 0.7 Direct Bilirubin 0.2 AST 169 H 243 H ALT 155 H 341 H Alkaline Phosphatase 49 56 Total Creatine Kinase Total Protein 6.5 6.6 Albumin 3.9 4.0 Lipase Urine Opiates Screen Ur Barbiturates Screen Ur Phencyclidine Scrn Ur Amphetamines Screen U Benzodiazepines Scrn Urine Cocaine Screen U Marijuana (THC) Screen Ethyl Alcohol COVID-19 (MATT) COVID-19 Clin Com Hep Bs Antigen Hep Bs Antibody Hep B Core Total Ab Hepatitis C Ab (EIA) 09/14/20 04:15 WBC RBC Hgb Hct MCV MCH MCHC RDW Plt Count MPV Immature Gran % (Auto) Neut % (Auto) Lymph % (Auto) Linn % (Auto) Eos % (Auto) Baso % (Auto) Lymph # (Auto) Linn # (Auto) Eos # (Auto) Baso # (Auto) Abs Immat Gran (auto) Absolute Neuts (auto) Absolute Nucleated RBC Nucleated RBC % (auto) PT INR Sodium Potassium Chloride Carbon Dioxide Anion Gap BUN Creatinine Estim Creat Clear Calc Estimated GFR Random Glucose Calcium Phosphorus Magnesium Ferritin Total Bilirubin Direct Bilirubin AST ALT Alkaline Phosphatase Total Creatine Kinase 1008 H Total Protein Albumin Lipase Urine Opiates Screen Ur Barbiturates Screen Ur Phencyclidine Scrn Ur Amphetamines Screen U Benzodiazepines Scrn Urine Cocaine Screen U Marijuana (THC) Screen Ethyl Alcohol COVID-19 (MATT) COVID-19 Clin Com Hep Bs Antigen Hep Bs Antibody Hep B Core Total Ab Hepatitis C Ab (EIA) Discharge Plan Discharge Patient Disposition: Xfer Other Discharge Diagnosis: alcohol use disorder, alcohol withdrawal, transaminasemia, CPK elevation [facility]Other] - 1 Week Zach Alvarez MD [Primary Care Provider] - 1 Week Marco Santos MD [Physician] - 2 Weeks Discharge Medications: New melatonin 3 mg Tablet 6 mg PO BEDTIME PRN (Reason: Insomnia) Qty: 30 RF: 0 B-complex with vitamin C Tablet 1 tab PO DAILY Qty: 30 RF: 0 folic acid 1 mg Tablet 1 mg PO DAILY Qty: 30 RF: 0 thiamine mononitrate (vit B1) 100 mg Tablet 100 mg PO DAILY Qty: 30 RF: 0 Continued lisinopril 10 mg Tablet 10 mg PO DAILY RF: 0 Discontinued acamprosate 333 mg tablet,delayed release (DR/EC) 2 tab PO TID RF: 0 Discharge Orders: Discharge Order (Routine); Ordered 09/14/20 Ordered By: Luna Liu Diet: advance to usual diet Activity on Discharge: As tolerated Stand Alone Forms: Patient Portal Discharge page, Community Support Other Ambulatory Orders: Creatine Kinase Total (Routine) Timeframe: 20200923 Facility: [facility] - Location: Laboratory Ordered By: Luna Liu Creatine Kinase Total (Routine) Timeframe: 2 Days Facility: [facility] - Location: Laboratory Ordered By: Luna Liu Liver Panel (Routine) Timeframe: 2 Days Facility: [facility] - Location: Laboratory Ordered By: Luna Liu Liver Panel (Routine) Timeframe: 20200923 Facility: [facility] - Location: Laboratory Ordered By: Luna Liu Care Plan Goals: sobriety workup of elevated liver enzymes + elevated CPK Health Concerns: alcohol use disorder alcohol withdrawal transaminasemia Plan of Treatment: transfer to 30-day rehabilitation program take B-vitamins as prescribed recheck laboratory studies [liver panel and CPK] in 2 days and again in 9 days follow up with Gastroenterology [Dr Marco Santos] and your primary care doctor [Dr Zach Alvarez] upon release from rehabilitation Assessment: as above Patient Instructions: Abuse of Alcohol (DC)
[2020-09-16 20:21] LABS: Transglutaminase Ab IgG 1 U/mL; Transglutaminase IgA 1 U/mL
[2020-09-21 00:02] LABS: Aldolase 16.7 U/L (<=8.1)
== END 2020-09-14 14:22 | disposition other institution (70) | DRG 897 ==
LOC: HO.ED 23:34 → HO.EDOVER 09-12 00:04 → HO.IMC 09-12 07:02
PROVIDERS: Nurse Practitioner Family; Admitting Provider Hospitalist; Emergency Provider Emergency Medicine; PCP Internal Medicine; Visit Provider Family Medicine
DX: F10.239 Alcohol dependence with withdrawal, unspecified (principal); E87.2 Acidosis; I10 Essential (primary) hypertension; K76.0 Fatty (change of) liver, not elsewhere classified; K70.10 Alcoholic hepatitis without ascites; Z20.822 Contact with and (suspected) exposure to COVID-19; Z79.899 Other long term (current) drug therapy
CPT/HCPCS: 36415; 76700; 80048; 80053; 80076; 80307; 81256; 82077; 82085; 82550; 82728; 83516; 83690; 83735; 84100; 85025; 85027; 85610; 86704; 86706; 86803; 87340; 87635; 93005; 99284; J2560; J3411

== ENCOUNTER 2023-12-23 15:06 | Emergency (ER) | payer BC, SELFPAY ==
[2023-12-23 15:33] VITALS: BP 160/87; PULSE 82; RESP 20; TEMP 36.2; O2SAT 97; BMI 27.4
--- NOTE | 2023-12-23 15:37 | ECG_ITS ---
Test Reason : SOB Blood Pressure : / mmHG Vent. Rate : 077 BPM Atrial Rate : 077 BPM P-R Int : 170 ms QRS Dur : 078 ms QT Int : 350 ms P-R-T Axes : 075 -49 045 degrees QTc Int : 396 ms Normal sinus rhythm with sinus arrhythmia Possible Left atrial enlargement Left axis deviation Abnormal ECG When compared with ECG of 14-SEP-2020 13:53, No significant change was found Referred By: Scott Smith Electronically Signed By:CAITLIN PEÑA MD
--- NOTE | 2023-12-23 15:39 | ED.GENADULT ---
HPI - General Adult General Chief complaint: Nausea/Vomiting/Diarrhea Stated complaint: Vomiting X 2 Days Time Seen by Provider: 12/23/23 21:24 Source: patient and family (Spouse) Mode of arrival: ambulatory Limitations: no limitations History of Present Illness ED Provider: DR. Watson HPI narrative: 53-year-old came in for evaluation of epigastric pain and vomiting since yesterday after eating barbecue meet at the [employer] yesterday patient's symptoms started shortly after the food, no known other sick contacts, no recent travel, no recent hospitalization, no recent use of antibiotic, nausea persisted until 3 hours ago now patient is able to keep oral intake without vomiting or nausea, feels some soreness in the epigastric area, no lower abdominal area, no significant intra-abdominal surgical history, no blood in the vomit, no rectal bleeding, no diarrhea, no dysuria, no frequency urination, no blood in the urine, no fever, no chills. Related Data Home Medications ?Medication ?Instructions ?Recorded ?Confirmed lisinopril 10 mg tablet 10 mg PO DAILY 09/11/20 09/11/20 Previous Rx's ?Medication ?Instructions ?Recorded B-complex with vitamin C 1 tab PO DAILY #30 tabs 09/14/20 folic acid 1 mg tablet 1 mg PO DAILY #30 tabs 09/14/20 melatonin 3 mg tablet 6 mg (2 x 3 mg) PO BEDTIME PRN 09/14/20 Insomnia #30 tabs thiamine mononitrate (vit B1) 100 100 mg PO DAILY #30 tabs 09/14/20 mg tablet omeprazole 40 mg capsule,delayed 40 mg PO DAILY #14 caps 12/23/23 release omeprazole 40 mg capsule,delayed 40 mg PO DAILY #14 caps 12/23/23 release Allergies Allergy/AdvReac Type Severity Reaction Status Date / Time No Known Allergies Allergy Verified 12/23/23 15:36 Review of Systems Review of Systems: All other systems are reviewed and are negative Constitutional: Reports as per HPI and Reports no additional constitutional complaints Eyes: Reports as per HPI and Reports no additional eye complaints Reports system reviewed and no additional complaints, except as documented Cardiovascular: Reports as per HPI and Reports no additional cardiovascular complaints Respiratory: Reports as per HPI and Reports no additional respiratory complaints Gastrointestinal: Reports as per HPI and Reports no additional gastrointestinal complaints Genitourinary: Reports no additional female genitourinary complaints Musculoskeletal: Reports no additional musculoskeletal complaints Skin/Breast: Reports system reviewed and no additional complaints, except as docu Psychiatric: Reports no additional psychiatric complaints Endocrine: Reports no additional endocrine complaints Hematologic/Lymphatic: Reports no additional hematologic/lymphatic complaints Allergic/Immunologic: Reports no additional allergic/immunologic complaints Reports system reviewed and no additional complaints, except as documented and Reports Abnormal speech present [facility] Past Medical History Medical History Transaminasemia Alcohol use disorder, severe, dependence Alcohol withdrawal syndrome HTN (hypertension) Social History Social History Household Members: Spouse Housing: House Do you presently have visiting nurse or other home services: No Patient Tobacco Use Status: Never used Tobacco Smoked in Last 30 Days: Yes Use of substances other than those prescribed or required for medical reasons: No Advance Directives: No Advance Directives Information Provided: No service: Yes Current occupational status: employed Physical Exam ED Vital Signs: Vital Signs - 24 hr 12/23/23 15:33 12/23/23 20:35 12/23/23 21:43 Temperature 97.2 F 98.2 F 98.6 F Pulse Rate 82 73 71 Respiratory Rate 20 18 18 Blood Pressure 160/87 H 133/77 132/77 Pulse Oximetry 97 97 95 Oxygen Delivery Method Room Air Room Air Room Air 12/23/23 21:43 Temperature 98.2 F Pulse Rate 73 Respiratory Rate 18 Blood Pressure 133/77 Pulse Oximetry 97 Oxygen Delivery Method Room Air BMI result Body Mass Index 27.4 Vital signs have been reviewed and appear to be correct. Blood pressure elevated. Heart rate normal. Respiratory rate normal. Temperature normal. Oxygen saturation normal. Appearance: Alert. Oriented X3. No acute distress. Head: Normal external exam. Normocephalic. Atraumatic. No Garcia signs noted. No raccoon eyes noted Eyes: PERRLA. EOMI. Conjunctiva and sclera normal. Eyelids normal. ENT: TM's Normal. Pharynx normal. Uvula midline. Moist mucous membranes. No trismus noted. No drooling noted. No muffled voice noted. Neck: Normal inspection. Neck supple. FROM. No adenopathy. Thyroid Normal. No meningeal signs. No neck mass noted. CVS: Normal heart rate and rhythm. Heart sound normal. No murmurs noted. Pulses normal throughout. Respiratory: No respiratory distress. Painless inspiration. Breath sounds normal. No wheezes/rales/rhonchi noted. Chest nontender. No accessory muscle usage noted or decreased air movement noted. Abdomen: Soft and nontender. Bowel sounds normal in all 4 quadrants. No distention noted. No organomegaly noted. No visible injury noted. Back: No CVA tenderness. Full range of motion noted. Skin: Skin warm and dry. Normal skin color. Normal skin turgor. No rashes/lesions/lacerations noted. Extremities: No lower extremity edema. Extremities exhibit normal range of motion. Extremities nontender. Neuro: Oriented X 3. Cranial nerve exam: II-XII are grossly intact No motor deficit. No sensory deficit. Reflexes normal. Course Course Course Narrative: RME: 53-year-old female sent to ED for epigastric acid burning sensation and vomiting for the past 2 days after eating beef stew. patient denies any chest pain or shortness of breath. Patient denies any lower abdominal pain or urinary symptoms. Abdominal exam benign. Reevaluation(s) Reevaluation #1: Feels better able to tolerate p.o. intake now no nausea, no vomiting, repeat abdominal exam showed no tenderness, no rebound tenderness, no guarding, VSS, ACS was ruled out in the emergency department clinical scenario and negative troponin with unremarkable EKG. Labs were reviewed elevated LFTs which improved from previous patient had a history alcohol abuse has been sober for 3 years. Will start the patient Prilosec and follow-up with PCP Time: 21:15 Medical Decision Making Differential Diagnosis Differential Diagnoses: The differential diagnosis associated with the presentation includes (Acute appendicitis, colitis, gastritis, food poisoning, gastroenteritis, pancreatitis gallbladder disease, electrolyte derangement, dehydration, severe anemia, ACS.) Admission/Observation Consideration of admission/observation: Escalation of care including admission/observation considered Lab Data MDM Lab Attestation statement: I reviewed the patient's lab results. 12/23/23 16:09 12/23/23 16:09 Labs: Lab Results 12/23/23 12/23/23 Range/Units 16:09 17:20 WBC 8.8 (4.8-10.8) X10*3/uL RBC 5.41 (4.60-5.80) X10*6/uL Hgb 16.9 (14.0-18.0) g/dl Hct 48.7 (42.0-52.0) % MCV 90.0 (80.0-98.0) fL MCH 31.2 (27.0-33.0) pg MCHC 34.7 (31.0-36.0) g/dl RDW 12.8 (11.0-16.0) % Plt Count 288 (160-400) X10*3/uL MPV 9.4 (9.4-12.4) fL Immature Gran % (Auto) 0.1 (0.0-0.4) % Neut % (Auto) 63.2 (45-73) % Lymph % (Auto) 25.1 (20-40) % [place] % (Auto) 8.3 (2-11) % Eos % (Auto) 2.3 (0-4) % Baso % (Auto) 1.0 (0-2) % Lymph # (Auto) 2.2 (1.2-4.9) X10*3/uL [place] # (Auto) 0.7 (0.1-1.2) X10*3/uL Eos # (Auto) 0.2 (0.0-0.4) X10*3/uL Baso # (Auto) 0.1 (0.0-0.2) X10*3/uL Abs Immat Gran (auto) 0.01 (0.00-0.03) X10*3/uL Absolute Neuts (auto) 5.6 (2.0-8.3) x10*3/uL Absolute Nucleated RBC 0.000 (0.0-0.012) X10*3/uL Nucleated RBC % (auto) 0.0 (0.0-0.2) /100WBC PT 11.9 (10.9-12.4) SEC INR 1.0 (0.9-1.1) APTT 30.3 (26.0-36.8) SEC Sodium 142 (135-145) mmol/L Potassium 4.6 (3.3-5.1) mmol/L Chloride 108 (96-108) mmol/L Carbon Dioxide 24 (22-29) mmol/L Anion Gap 15 (12-20) BUN 15 (9-16) mg/dL Creatinine 1.01 (0.5-1.4) mg/dL Estim Creat Clear Calc 80.8 Estimated GFR > 60 Random Glucose 104 (60-115) mg/dL Calcium 10.6 H D (8.4-10.2) mg/dL Total Bilirubin 0.7 (0.0-1.0) mg/dL AST 40 H (5-37) U/L ALT 41 H (0-40) U/L Alkaline Phosphatase 56 (39-117) U/L Troponin I High Sens < 2.7 (<3.5-35.0) ng/L Total Protein 8.3 H (6.5-8.0) g/dL Albumin 4.9 (3.5-5.0) g/dL Lipase 24 (8-78) U/L Urine Color Dark Yellow Urine Appearance Clear Urine pH 7.0 (5.0-9.0) Ur Specific Honeydew 1.025 (1.005-1.025) Urine Protein Trace (Neg-Trace) mg/dL Urine Glucose (UA) Negative (Negative) mg/dL Urine Ketones 40 (Negative) mg/dL Urine Blood Negative (Negative) Urine Nitrite Negative (Negative) Ur Leukocyte Esterase Negative (Negative) Discharge Plan Discharge Clinical Impression: Food poisoning Patient Disposition: Home, Self-Care Instructions: Food Poisoning (ED) Prescriptions: New omeprazole 40 mg capsule,delayed release(DR/EC) 40 mg PO DAILY Qty: 14 0RF omeprazole 40 mg capsule,delayed release(DR/EC) 40 mg PO DAILY Qty: 14 0RF No Action lisinopril 10 mg Tablet 10 mg PO DAILY melatonin 3 mg Tablet 6 mg PO BEDTIME PRN (Reason: Insomnia) Qty: 30 0RF B-complex with vitamin C Tablet 1 tab PO DAILY Qty: 30 0RF folic acid 1 mg Tablet 1 mg PO DAILY Qty: 30 0RF thiamine mononitrate (vit B1) 100 mg Tablet 100 mg PO DAILY Qty: 30 0RF Referrals: Zach Alvarez MD [Primary Care Provider] - Interventions: ED Discharge Assessment Last Done: 12/23/23 21:43 Discharge Date/Time: 12/23/23 21:46 Print Language: British
[2023-12-23 16:13] LABS: MANUAL DIFF FLAG NO
[2023-12-23 16:15] LABS: Basophils Absolute Auto 0.1 X10*3/uL (0.0-0.2); Eosinophils Absolute Auto 0.2 X10*3/uL (0.0-0.4); Eosinophils Percent Auto 2.3 % (0-4); Hematocrit 48.7 % (42.0-52.0); Hemoglobin 16.9 g/dl (14.0-18.0); Imm Gran Abs Auto 0.01 X10*3/uL (0.00-0.03); Imm Gran Pct Auto 0.1 % (0.0-0.4); Lymphocytes Absolute Auto 2.2 X10*3/uL (1.2-4.9); Lymphocytes Percent Auto 25.1 % (20-40); Mean Corpuscular HGB Conc 34.7 g/dl (31.0-36.0); Mean Corpuscular Hemoglobin 31.2 pg (27.0-33.0); Mean Platelet Volume 9.4 fL (9.4-12.4); Monocytes Absolute Auto 0.7 X10*3/uL (0.1-1.2); Monocytes Percent Auto 8.3 % (2-11); Neutrophils Absolute Auto 5.6 x10*3/uL (2.0-8.3); Neutrophils Percent Auto 63.2 % (45-73); Platelet Count 288 X10*3/uL (160-400); Red Blood Count 5.41 X10*6/uL (4.60-5.80); Red Cell Distribution Width 12.8 % (11.0-16.0); White Blood Count 8.8 X10*3/uL (4.8-10.8)
[2023-12-23 16:20] LABS: Prothrombin Time 11.9 SEC (10.9-12.4)
[2023-12-23 16:23] LABS: Partial Thromboplastin Time 30.3 SEC (26.0-36.8)
[2023-12-23 16:43] LABS: Troponin-I High Sensitivity < 2.7 ng/L (<3.5-35.0)
[2023-12-23 16:45] LABS: Anion Gap 15 (12-20); Carbon Dioxide 24 mmol/L (22-29); Chloride 108 mmol/L (96-108); Potassium 4.6 mmol/L (3.3-5.1); Sodium 142 mmol/L (135-145)
[2023-12-23 17:03] LABS: Alanine Aminotransferase 41 U/L (0-40); Albumin Level 4.9 g/dL (3.5-5.0); Alkaline Phosphatase 56 U/L (39-117); Aspartate Amino Transferase 40 U/L (5-37); Bilirubin Total 0.7 mg/dL (0.0-1.0); Blood Urea Nitrogen 15 mg/dL (9-16); Calcium 10.6 mg/dL (8.4-10.2); Creatinine Clr Calc Pharmacy 80.8; Estimated Glomerular Filt Rate > 60; Glucose Random 104 mg/dL (60-115); Lipase 24 U/L (8-78); Total Protein 8.3 g/dL (6.5-8.0)
[2023-12-23 17:45] LABS: Appearance Urine Clear; Color Urine Dark Yellow; Glucose Urine UA Negative (Negative); Leukocyte Esterase Urine Negative (Negative); Nitrite Urine Negative (Negative); Specific Gravity - Urine 1.025 (1.005-1.025); Urine Blood Negative (Negative); Urine Ketones 40 mg/dL (Negative); Urine Protein Trace mg/dL (Neg-Trace)
[2023-12-23 20:35] VITALS: BP 133/77; PULSE 73; RESP 18; TEMP 36.8; O2SAT 97
[2023-12-23 21:43] VITALS: BP 132/77; BP 133/77; PULSE 71; PULSE 73; RESP 18; TEMP 36.8; TEMP 37; O2SAT 95; O2SAT 97
== END 2023-12-23 21:46 | disposition home or self-care (01) ==
PROVIDERS: Physician Assistant; Emergency Provider Emergency Medicine; PCP Internal Medicine
DX: A05.9 Bacterial foodborne intoxication, unspecified (principal); R10.13 Epigastric pain; R11.2 Nausea with vomiting, unspecified; I10 Essential (primary) hypertension
CPT/HCPCS: 36415; 80053; 81003; 83690; 84484; 85025; 85610; 85730; 93005; 99283; 99285

== ENCOUNTER → 2023-12-23 15:37 | Outpatient (BNV) | payer BC, SELFPAY | PROVIDERS: Emergency Provider Emergency Medicine; PCP Internal Medicine; Visit Provider Internal Medicine Cardiovascular Disease | DX: R06.02 Shortness of breath (principal) | CPT/HCPCS: 93010 ==